=== PATIENT | male | born 1985 | race Caucasian/White ===

== ENCOUNTER 2016-10-25 21:35 | Emergency (ER) | payer SELFPAY ==
[~2016-10-25 21:35] MED LIST: NO MEDICATIONS
== END 2016-10-25 21:47 | disposition home or self-care (01) ==
LOC: SED 21:35
DX: K91.841 Postprocedural hemorrhage of a digestive system organ or structure following other procedure (principal); F17.200 Nicotine dependence, unspecified, uncomplicated; K08.89 Other specified disorders of teeth and supporting structures; Z79.2 Long term (current) use of antibiotics; Z79.899 Other long term (current) drug therapy
CPT/HCPCS: 99282